=== PATIENT | male | born 1960 | race Caucasian/White ===

== ENCOUNTER 2016-08-23 13:06 | Emergency (ER) | payer MEDICARE ==
[2016-08-23 13:23] VITALS: BP 122/76; PULSE 98; RESP 18; TEMP 98
--- NOTE | 2016-08-23 13:46 | ED ---
General Adult HPI - General Chief complaint: Recheck/Abnormal Lab/Rx Stated complaint: Rx refill Time Seen by Provider: 08/23/16 13:30 Source: patient, RN notes reviewed, old records reviewed Mode of arrival: ambulatory Limitations: no limitations - History of Present Illness Initial comments: This is a 55-year-old male presenting to the emergency Department chief complaint of needing a medication refill. Patient reports he recently moved here from [place] and HIS medications have been lost and his suitcase. Patient reports that he needs a refill of his blood pressure medications, and Leverett and Klonopin and Prozac. Patient reports he's been out of them for the past 4 days. Patient states he is going through withdrawals at this point. Patient states that he saw his previous pain management doctor in [place] and now is moving up here. Patient states that he needs medications to get him through September 07. Patient states at that time he has an appointment with a neurologist here and will have his prescriptions filled. Patient denies any unusual symptoms besides starting to go through diarrhea and feel shaky. That he does not have his medications. - Related Data Previous Rx's Medication Instructions Recorded Atorvastatin [Lipitor] 40 mg PO DAILY #20 tablet 08/23/16 FLUoxetine HCL [PROzac] 20 mg PO DAILY #20 cap 08/23/16 Fenofibrate Nanocrystallized 145 mg PO DAILY #20 tablet 08/23/16 [Fenofibrate] HYDROcodone/APAP 10-325MG [Leverett 1 tab PO Q6H PRN #20 tab 08/23/16 10-325] Losartan [Cozaar] 50 mg PO BID #20 tab 08/23/16 clonazePAM [KlonoPIN] 0.5 mg PO TID #15 tablet 08/23/16 Allergies Allergy/AdvReac Type Severity Reaction Status Date / Time No Known Allergies Allergy Verified 08/23/16 13:23 Review of Systems ROS Statement: Those systems with pertinent positive or pertinent negative responses have been documented in the HPI. ROS Other: All systems not noted in ROS Statement are negative. Past Medical History Past Medical History: Fibromyalgia Additional Past Medical History / Comment(s): chronic back pain ptsd ocd chi History of Any Multi-Drug Resistant Organisms: None Reported Additional Past Surgical History / Comment(s): brain surg Past Psychological History: Anxiety, Depression, PTSD Smoking Status: Current every day smoker Past Alcohol Use History: None Reported Past Drug Use History: None Reported General Exam - General Exam Comments Initial Comments: 55-year-old male. No distress. Limitations: no limitations General appearance: alert Head exam: Present: atraumatic, normocephalic, normal inspection Eye exam: Present: normal appearance, PERRL, EOMI. Absent: scleral icterus, conjunctival injection, periorbital swelling ENT exam: Present: normal exam, mucous membranes moist Neck exam: Present: normal inspection. Absent: tenderness, meningismus, lymphadenopathy Respiratory exam: Present: normal lung sounds bilaterally. Absent: respiratory distress, wheezes, rales, rhonchi, stridor Cardiovascular Exam: Present: regular rate, normal rhythm, normal heart sounds. Absent: systolic murmur, diastolic murmur, rubs, gallop, clicks GI/Abdominal exam: Present: soft, normal bowel sounds. Absent: distended, tenderness, guarding, rebound, rigid Extremities exam: Present: normal inspection, full ROM, normal capillary refill. Absent: tenderness, pedal edema, joint swelling, calf tenderness Back exam: Present: normal inspection Neurological exam: Present: alert, oriented X3, CN II-XII intact Psychiatric exam: Present: normal affect, normal mood Skin exam: Present: warm, dry, intact, normal color. Absent: rash Course Vital Signs 08/23/16 13:19 Temperature 98.0 F Pulse Rate 98 Respiratory 18 Rate Blood Pressure 122/76 O2 Sat by Pulse 98 Oximetry Medical Decision Making - Medical Decision Making 35-year-old male with chief complaint of needing a med refill. Patient given refill for his blood pressure medications and pain medication. Discussed following up with primary care provider. Patient be given a list of primary care doctor's a neurologist in the area. Disposition Clinical Impression: Encounter for medication refill Disposition: HOME SELF-CARE Condition: Good Instructions: Medicine Refill (ED) Additional Instructions: Patient advised to follow-up with a primary care provider. Take medications as prescribed. Return to the emergency department if any alarming signs or symptoms occur. Prescriptions: Atorvastatin [Lipitor] 40 mg PO DAILY #20 tablet clonazePAM [KlonoPIN] 0.5 mg PO TID #15 tablet Fenofibrate Nanocrystallized [Fenofibrate] 145 mg PO DAILY #20 tablet FLUoxetine HCL [PROzac] 20 mg PO DAILY #20 cap HYDROcodone/APAP 10-325MG [Leverett 10-325] 1 tab PO Q6H PRN #20 tab PRN Reason: Pain Losartan [Cozaar] 50 mg PO BID #20 tab Referrals: None,Stated [Primary Care Provider] - 1-2 days Jennifer Bradley MD [STAFF PHYSICIAN] - 1-2 days Robert Dave MD [STAFF PHYSICIAN] - 1-2 days Abhishek White MD [STAFF PHYSICIAN] - 1-2 days Domo Hastings MD [STAFF PHYSICIAN] - 1-2 days Time of Disposition: 13:50
== END 2016-08-23 14:10 | disposition home or self-care (01) ==
LOC: EC 13:06
DX: R19.7 Diarrhea, unspecified (principal); Z76.0 Encounter for issue of repeat prescription; R25.8 Other abnormal involuntary movements; F17.200 Nicotine dependence, unspecified, uncomplicated
CPT/HCPCS: 99282